=== PATIENT | female | born 2000 | race Caucasian/White ===

== ENCOUNTER 2021-10-13 14:49 | Outpatient (CLI) | payer OTHER, SELFPAY ==
[2021-10-13 16:48] LABS: SARS-CoV-2 Ag Negative (Negative)
[2021-10-14 21:12] LABS: SARS-CoV-2 RNA PCR Positive
== END 2021-10-13 14:50 | disposition home or self-care (01) ==
LOC: CHSLAB 15:00
PROVIDERS: PCP Physician Assistant; Visit Provider Family Medicine
DX: U07.1 COVID-19 (principal)
CPT/HCPCS: 87426; C9803; U0003; U0005